=== PATIENT | male | born 1995 | race Caucasian/White ===

== ENCOUNTER 2017-05-18 20:26 | Emergency (ER) | payer BC ==
[~2017-05-18] VITALS: Ht 177.8 cm; Wt 91.0 kg
[~2017-05-18 20:26] MED LIST: DRYSOLDAB TOP
[2017-05-18 20:38] VITALS: TEMP 36.4; Ht 177.8 cm; Wt 91.0 kg
[2017-05-18] MEDS ORDERED: SODIUM CHLORIDE 0.9% 1000ML 1,000 ML IV STA (20:43)
[2017-05-18] MEDS ORDERED: KETOROLAC TROMETHAMINE 30 MG/ML VIAL IV STA (20:43)
[2017-05-18] MEDS ORDERED: ONDANSETRON INJ 2 MG/ML 2 ML VIAL IV STA (20:43)
--- NOTE | 2017-05-18 20:47 | EMERGENCY ROOM VISIT NOTE ---
History Report prepared by Tomy: Latanya Diggs Under the Supervision of: Nery FuO. First contact with patient: 20:41 Chief Complaint: ABDOMINAL PAIN Stated Complaint: ABD PAIN VOMIT,FEVER History of Present Illness The patient is a 21 year old male who presents to the Emergency Room with complaints of constant abdominal pain beginning 1 hour ago. The patient states that he took a final tonight and began to feel lightheaded and nauseous. He reports that he began to vomit intermittently shortly after and has had constant abdominal pain since. The patient complains of 7 episodes of diarrhea today and back pain. He notes that he went to urgent care and was sent here. The patient notes that he has been taking Benadryl for the last 2 days to sleep after he drinks coffee. He denies any fever. Source of History: patient Onset: 1 hour ago Position: abdomen Timing: constant Associated Symptoms: + chills, + nausea, + vomiting, + diarrhea, No fevers Review of Systems See HPI for pertinent positives & negatives. A total of 10 systems reviewed and were otherwise negative. Past Medical & Surgical Medical Problems: (1) No chronic problems Family History No pertinent family history stated. Social History Smoking Status: Current Some Day Smoker Marital Status: single Housing Status: lives with roommate Occupation Status: [employer] Current/Historical Medications Scheduled Aluminum Chloride (Drysol), 1 APPLN TOP HS Ondasetron Odt (Zofran Odt), 4 MG SL Q6H Scheduled PRN Diphenhydramine Hcl (Benadryl Allergy), 25 MG PO UD PRN for Allergy Symptoms Allergies Coded Allergies: No Known Allergies (Unverified , 02/04/16) Physical Exam Vital Signs Date Time Temp Pulse Resp B/P (MAP) Pulse Ox O2 Delivery O2 Flow Rate FiO2 05/18/17 22:15 98 18 132/58 98 05/18/17 21:12 94 18 137/93 100 Room Air 05/18/17 20:38 36.4 111 22 99 Room Air Physical Exam GENERAL: Patient is awake, alert, somewhat anxious appearing and uncomfortable EYES: The conjunctivae are clear. The pupils are round and reactive. EARS, NOSE, MOUTH AND THROAT: The nose is without any evidence of any deformity. Mucous membranes are moist tongue is midline NECK: The neck is nontender and supple. RESPIRATORY: Normal respiratory effort is noted there is no evidence of wheezing rhonchi or rales CARDIOVASCULAR: Regular rate and rhythm noted there no murmurs rubs or gallops normal S1 normal S2 GASTROINTESTINAL: The abdomen is moderately distended but soft. Bowel sounds are present in all quadrants. Abdomen is nontender. No guarding or rigidity. BACK: No midline tenderness or or step-off noted range of motion in flexion extension as well as rotation no signs of muscle spasm noted MUSCULOSKELETAL/EXTREMITIES: There is no evidence of gross deformity full range of motion is noted in the hips and shoulders SKIN: There is no obvious evidence of any rash. There are no petechiae, pallor or cyanosis noted. NEUROLOGIC: Patient is awake alert and oriented x3 Medical Decision & Procedures ER Provider Diagnostic Interpretation: Radiology results as stated below per my review and radiologist interpretation: CT OF THE ABDOMEN AND PELVIS WITHOUT CONTRAST FINDINGS: There are no renal, ureteral or bladder calculi. There is no hydronephrosis. Evaluation of the remainder of the abdomen and pelvis is suboptimal on this unenhanced exam. The liver, spleen, adrenal glands and pancreas are normal. There is no biliary or pancreatic ductal dilatation. No peripancreatic or pericholecystic infiltration is present. There is no evidence for a bowel obstruction. The appendix is normal. There is no ascites or lymphadenopathy. No suspicious skeletal lesion is identified. There is no pneumatosis, free air or portal venous gas. IMPRESSION: 1. No urinary calculi or hydronephrosis. 2. No acute process within the abdomen or pelvis on unenhanced exam. Normal appendix. Electronically signed by: Joshua Tierney M.D. 05/18/2017 9:48 PM Dictated Date/Time: 05/18/2017 9:43 PM Laboratory Results 05/18/17 21:00 Red Blood Count 5.72, Mean Corpuscular Volume 89.2, Mean Corpuscular Hemoglobin 31.3, Mean Corpuscular Hemoglobin Concent 35.1, Mean Platelet Volume 10.3, Neutrophils (%) (Auto) 89.8, Lymphocytes (%) (Auto) 4.0, Monocytes (%) (Auto) 5.6, Eosinophils (%) (Auto) 0.2, Basophils (%) (Auto) 0.1, Neutrophils # (Auto) 13.17, Lymphocytes # (Auto) 0.59, Monocytes # (Auto) 0.82, Eosinophils # (Auto) 0.03, Basophils # (Auto) 0.01 05/18/17 21:00 Test 05/18/17 21:00 White Blood Count 14.66 K/uL (4.8-10.8) Red Blood Count 5.72 M/uL (4.7-6.1) Hemoglobin 17.9 g/dL (14.0-18.0) Hematocrit 51.0 % (42-52) Mean Corpuscular Volume 89.2 fL (80-100) Mean Corpuscular Hemoglobin 31.3 pg (25-34) Mean Corpuscular Hemoglobin Concent 35.1 g/dl (32-36) Platelet Count 211 K/uL (130-400) Mean Platelet Volume 10.3 fL (7.4-10.4) Neutrophils (%) (Auto) 89.8 % Lymphocytes (%) (Auto) 4.0 % Monocytes (%) (Auto) 5.6 % Eosinophils (%) (Auto) 0.2 % Basophils (%) (Auto) 0.1 % Neutrophils # (Auto) 13.17 K/uL (1.4-6.5) Lymphocytes # (Auto) 0.59 K/uL (1.2-3.4) Monocytes # (Auto) 0.82 K/uL (0.11-0.59) Eosinophils # (Auto) 0.03 K/uL (0-0.5) Basophils # (Auto) 0.01 K/uL (0-0.2) RDW Standard Deviation 40.5 fL (36.4-46.3) RDW Coefficient of Variation 12.6 % (11.5-14.5) Immature Granulocyte % (Auto) 0.3 % Immature Granulocyte # (Auto) 0.04 K/uL (0.00-0.02) Urine Color DK YELLOW Urine Appearance CLEAR (CLEAR) Urine pH 6.5 (4.5-7.5) Urine Specific [place] 1.026 (1.000-1.030) Urine Protein NEG (NEG) Urine Glucose (UA) NEG (NEG) Urine Ketones 2+ (NEG) Urine Occult Blood TRACE (NEG) Urine Nitrite NEG (NEG) Urine Bilirubin 1+ (NEG) Urine Urobilinogen NEG (NEG) Urine Leukocyte Esterase TRACE (NEG) Urine WBC (Auto) 1-5 /hpf (0-5) Urine RBC (Auto) 5-10 /hpf (0-4) Urine Hyaline Casts (Auto) 1-5 /lpf (0-5) Urine Epithelial Cells (Auto) 0-5 /lpf (0-5) Urine Bacteria (Auto) NEG (NEG) Anion Gap 9.0 mmol/L (3-11) Est Creatinine Clear Calc Drug Dose 104.3 ml/min Estimated GFR () 93.2 Estimated GFR (Non- 80.4 BUN/Creatinine Ratio 12.8 (10-20) Calcium Level 9.4 mg/dl (8.5-10.1) Total Bilirubin 0.9 mg/dl (0.2-1) Direct Bilirubin 0.2 mg/dl (0-0.2) Aspartate Amino Transf (AST/SGOT) 22 U/L (15-37) Alanine Aminotransferase (ALT/SGPT) 38 U/L (12-78) Alkaline Phosphatase 48 U/L (45-117) Total Protein 8.0 gm/dl (6.4-8.2) Albumin 4.8 gm/dl (3.4-5.0) Lipase 158 U/L (73-393) Laboratory results per my review. Medications Administered Medications (Trade) Dose Ordered Sig/Negar Route Start Time Stop Time Status Last Admin Dose Admin Ketorolac Tromethamine (Toradol Inj) 30 mg NOW STAT IV 05/18/17 20:43 05/18/17 20:45 DC 05/18/17 21:10 30 MG Sodium Chloride 1,000 ml @ 999 mls/hr Q1H1M STAT IV 05/18/17 20:43 05/18/17 21:43 DC 05/18/17 21:10 999 MLS/HR Ondansetron HCl (Zofran Inj) 4 mg NOW STAT IV 05/18/17 20:43 05/18/17 20:45 DC 05/18/17 21:09 4 MG Ondansetron HCl (ZOFRAN ODT 4MG Home Pack) 1 homepack UD ONCE PO 05/18/17 22:00 05/18/17 22:01 DC 05/18/17 22:10 1 HOMEPACK ED Course 2040: The patient was evaluated in room A11. A complete history and physical examination were performed. 2042: Zofran Inj 4mg IV, NSS 1,000 ml @ 999 mls/hr IV, Toradol Inj 30mg IV. 2200: Upon reevaluation, the patient is doing well. I discussed the results and treatment plan with him. he verbalized agreement of the treatment plan. The patient was discharged home. Medical Decision Differential diagnosis: Etiologies such as appendicitis, diverticulitis, PUD, biliary pathology, UTI, pancreatitis, obstruction, mesenteric ischemia, aortic pathology, infections, inflammatory bowel disease, renal colic, as well as others were entertained. Nursing notes reviewed. The patient is a 21-year-old male who presented to emergency department for an evaluation of nausea vomiting and diarrhea. The patient had a fever. The patient was treated with IV fluids and IV antiemetics. On subsequent reevaluation he was feeling much better. I discussed the patient's laboratory radiographic studies with him. He was encouraged to drink plenty clear liquids and follow-up with [facility] this is possible. He was also encouraged to continue using Zofran and drink Pedialyte and Gatorade. He was also encouraged return to the emergency department immediately if symptoms change worsen or the need arises. The patient had significant abdominal pain with an elevated white blood cell count. Even though his history and physical exam appeared to be more consistent with a gastroenteritis a CT was obtained to be sure there is no surgical process noted. Medication Reconcilliation Current Medication List: was not reviewed Blood Pressure Screening Patient's blood pressure: Elevated blood pressure Blood pressure disposition: Elevated BP felt to be situational Impression Primary Impression: Nausea Additional Impressions: Vomiting Diarrhea Dehydration Scribe Attestation The scribe's documentation has been prepared under my direction and personally reviewed by me in its entirety. I confirm that the note above accurately reflects all work, treatment, procedures, and medical decision making performed by me. Departure Information Dispostion Home / Self-Care Prescriptions Ondasetron Odt (ZOFRAN ODT) 4 Mg Tab 4 MG SL Q6H for Nausea, #15 TAB Prov: Hosea Mckay, DO 05/18/17 Referrals No Doctor, Assigned (PCP) Patient Instructions My [facility] [address] Additional Instructions Continue all medications as prescribed. Continue using Motrin and Tylenol as directed for pain. Drink plenty clear liquids. Follow-up with [facility] this week for reevaluation. Problem Qualifiers Additional Impressions: Vomiting Vomiting type: unspecified Vomiting Intractability: non-intractable Nausea presence: with nausea Qualified Codes: R11.2 - Nausea with vomiting, unspecified Diarrhea Diarrhea type: unspecified type Qualified Codes: R19.7 - Diarrhea, unspecified
[2017-05-18 21:12] LABS: BASO % 0.1 %; BASO ABS # 0.01 K/uL (0-0.2); COMPLETE YES; EOS % 0.2 %; IG% 0.3 %; LYMPH ABS # 0.59 K/uL (1.2-3.4); MEAN CELL VOLUME 89.2 fL (80-100); MEAN CORPUSCULAR HEMOGLOBIN 31.3 pg (25-34); MEAN CORPUSCULAR HGB CONC 35.1 g/dl (32-36); MEAN PLATELET VOLUME 10.3 fL (7.4-10.4); MONO % 5.6 %; NEUT % 89.8 %; PLATELET COUNT 211 K/uL (130-400); RED BLOOD COUNT 5.72 M/uL (4.7-6.1); WHITE BLOOD COUNT 14.66 K/uL (4.8-10.8)
[2017-05-18 21:24] LABS: URINE APPEARANCE CLEAR (CLEAR); URINE COLOR DK YELLOW; URINE EPITHELIAL CELL AUTO 0-5 /lpf (0-5); URINE NITRITE NEG (NEG); URINE PH 6.5 (4.5-7.5); URINE SPECIFIC GRAVITY 1.026 (1.000-1.030); UROBILINOGEN NEG (NEG)
[2017-05-18 21:29] LABS: MANUAL MICROSCOPIC REQUIRED? NO; REVIEW REQ? NO; URINE BILIRUBIN 1+ (NEG)
[2017-05-18] MEDS ORDERED: DIPH1TAB87 PO (21:39)
[2017-05-18 21:47] LABS: BUN/CREATININE RATIO 12.8 (10-20); CALCIUM 9.4 mg/dl (8.5-10.1); CREATININE 1.26 mg/dl (0.60-1.40); POTASSIUM 3.5 mmol/L (3.5-5.1)
--- NOTE | 2017-05-18 21:49 | DIAGNOSTIC IMAGING REPORT ---
CT OF THE ABDOMEN AND PELVIS WITHOUT CONTRAST CLINICAL HISTORY: Abdominal pain, fever and vomiting. COMPARISON STUDY: No previous studies for comparison. TECHNIQUE: Axial images of the abdomen and pelvis were obtained without IV contrast. Images were reviewed in the axial, sagittal, and coronal planes. A dose lowering technique was utilized adhering to the principles of ALARA. FINDINGS: There are no renal, ureteral or bladder calculi. There is no hydronephrosis. Evaluation of the remainder of the abdomen and pelvis is suboptimal on this unenhanced exam. The liver, spleen, adrenal glands and pancreas are normal. There is no biliary or pancreatic ductal dilatation. No peripancreatic or pericholecystic infiltration is present. There is no evidence for a bowel obstruction. The appendix is normal. There is no ascites or lymphadenopathy. No suspicious skeletal lesion is identified. There is no pneumatosis, free air or portal venous gas. IMPRESSION: 1. No urinary calculi or hydronephrosis. 2. No acute process within the abdomen or pelvis on unenhanced exam. Normal appendix. Electronically signed by: Joshua Tierney M.D. 05/18/2017 9:48 PM Dictated Date/Time: 05/18/2017 9:43 PM
[2017-05-18] MEDS ORDERED: ONDANSETRON HOME PACK 4MG OD TAB PO ONE (22:00)
[2017-05-18] MEDS ORDERED: ONDA4TAB10 SL (22:00)
[2017-05-18 22:15] VITALS: BP 132/58; PULSE 98; O2SAT 98
== END 2017-05-18 22:15 | disposition home or self-care (01) ==
LOC: C.EDB 20:27 → C.EDA 22:15
DX: R11.2 Nausea with vomiting, unspecified (principal); R19.7 Diarrhea, unspecified; E86.0 Dehydration; F17.200 Nicotine dependence, unspecified, uncomplicated; R03.0 Elevated blood-pressure reading, without diagnosis of hypertension